=== PATIENT | female | born 1980 | race African-American/Black ===

== ENCOUNTER 2024-10-14 13:13 | Emergency (ER) | payer BC ==
[2024-10-14 14:07] LABS: #Basophils 0.03 10x3/uL (0.0-0.2); #Eosinophils 0.03 10x3/uL (0.0-0.5); #Monocytes 0.95 10x3/uL (0.0-1.1); #Neutrophils 4.15 10x3/uL (1.5-8.4); %Basophils 0.4 % (0.0-2.0); %Eosinophils 0.4 % (0.0-6.0); %Lymphocytes 34.1 % (18.0-47.0); %Monocytes 12.1 % (0.0-10.0); %Neutrophils 52.6 % (40.0-75.0); Hematocrit 44.9 % (34.9-44.5); Hemoglobin 15.4 g/dL (12.0-15.5); Mean Corpuscular HGB CONC 34.3 g/dL (32.0-36.0); Mean Corpuscular Hemoglobin 28.1 pg (27.0-33.0); Mean Corpuscular Volume 81.9 fL (81.6-98.3); Mean Platelet Volume 9.9 fL (7.4-10.4); Platelet Count 308 10x3/uL (150-450); RBC Distribution Width 13.2 % (11.5-14.5); Red Blood Cell (RBC) Count 5.48 10x6/uL (3.90-5.03); White Blood Cell (WBC) Count 7.9 10x3/uL (3.5-10.5)
[2024-10-14 14:26] LABS: ALT (SGPT) 13 U/L (8-55); AST (SGOT) 16 U/L (5-34); Albumin 4.3 g/dL (3.5-5.0); Alkaline Phosphatase 70 U/L (40-110); Anion Gap 17 mmol/L (10-20); BUN (Urea Nitrogen) 9 mg/dL (7.0-18.7); Bilirubin, Total 2.5 mg/dL (0.2-1.2); Calc. Creatinine Clearance 0 mL/min (70-130); Calcium 9.9 mg/dL (7.8-10.44); Carbon Dioxide 26 mmol/L (22-29); Chloride 93 mmol/L (98-107); Estimated GFR 87; Globulin 4.6 g/dL (2.4-3.5); Glucose 141 mg/dL (70-105); Potassium 3.4 mmol/L (3.5-5.1); Protein, Total 8.9 g/dL (6.0-8.3); Sodium 133 mmol/L (136-145)
[2024-10-14 14:29] LABS: Troponin I 0.013 ng/mL (< 0.028)
== END 2024-10-14 14:48 | disposition home or self-care (01) ==
LOC: CSHERS 13:13
DX: R07.9 Chest pain, unspecified (principal); Z87.891 Personal history of nicotine dependence
CPT/HCPCS: 71045; 80053; 84484; 85025; 93005

== ENCOUNTER 2024-11-01 07:09 | Emergency (ER) | payer BC ==
[2024-11-01] MEDS ORDERED: Ondansetron PF 4 MG/2 ML Vial ONE (08:00)
[2024-11-01] MEDS ORDERED: Ketorolac Tromethamine 30 MG (1 mL) VIAL ONE (08:00)
[2024-11-01 08:11] LABS: #Basophils Less than 0.03 10x3/uL (0.0-0.2); #Eosinophils Less than 0.03 10x3/uL (0.0-0.5); #Monocytes 0.35 10x3/uL (0.0-1.1); #Neutrophils 6.34 10x3/uL (1.5-8.4); %Basophils 0.1 % (0.0-2.0); %Lymphocytes 13.8 % (18.0-47.0); %Monocytes 4.5 % (0.0-10.0); %Neutrophils 81.5 % (40.0-75.0); Hematocrit 40.1 % (34.9-44.5); Hemoglobin 12.9 g/dL (12.0-15.5); Mean Corpuscular HGB CONC 32.2 g/dL (32.0-36.0); Mean Corpuscular Volume 84.1 fL (81.6-98.3); Mean Platelet Volume 9.1 fL (7.4-10.4); Platelet Count 324 10x3/uL (150-450); RBC Distribution Width 13.8 % (11.5-14.5); Red Blood Cell (RBC) Count 4.77 10x6/uL (3.90-5.03); White Blood Cell (WBC) Count 7.78 10x3/uL (3.5-10.5)
[2024-11-01 08:30] LABS: ALT (SGPT) 10 U/L (8-55); AST (SGOT) 9 U/L (5-34); Albumin 4.2 g/dL (3.5-5.0); Alkaline Phosphatase 58 U/L (40-110); Anion Gap 16 mmol/L (10-20); BUN (Urea Nitrogen) 7 mg/dL (7.0-18.7); Bilirubin, Total 1.9 mg/dL (0.2-1.2); Calc. Creatinine Clearance 0 mL/min (70-130); Calcium 10.1 mg/dL (7.8-10.44); Carbon Dioxide 22 mmol/L (22-29); Chloride 103 mmol/L (98-107); Estimated GFR 102; Globulin 4.1 g/dL (2.4-3.5); Glucose 174 mg/dL (70-105); Lipase 10 U/L (8-78); Potassium 3.8 mmol/L (3.5-5.1); Protein, Total 8.3 g/dL (6.0-8.3); Sodium 137 mmol/L (136-145)
[2024-11-01] MEDS ORDERED: Mag-Al 1200 mg/1200 mg/30 ML UDCUP ONE (08:42)
[2024-11-01] MEDS ORDERED: Famotidine 20 MG TAB ONE (08:46)
== END 2024-11-01 09:41 | disposition home or self-care (01) ==
LOC: CSHERS 07:09
DX: R11.2 Nausea with vomiting, unspecified (principal); R10.9 Unspecified abdominal pain; Z87.891 Personal history of nicotine dependence
CPT/HCPCS: 74176; 80053; 83690; 85025; 93005; 96374; 96375; J1885; J2405